=== PATIENT | female | born 1995 | race Caucasian/White ===

== ENCOUNTER 2023-09-11 15:28 | Outpatient (CLI) | payer OTHER ==
--- NOTE | 2023-09-11 16:08 | Sleep Patient Instructions ---
Sleep Center Visit Summary - Patient Visit Information Reason for Visit: Initial consultation - Patient Instructions Additional Instructions: You will continue with CPAP therapy with pressure set at 7 cmH2O. A supply prescription will be sent to your DME supplier for CPAP supplies. They should be reaching out to you to order supplies. You will be completing a sleep study, either an in-lab polysomnography (PSG) or home sleep study (HST). You will follow-up in the sleep care office after the sleep study is completed to hear the results and talk about therapy, if needed. You will be called by our office staff to schedule this appointment, but you may contact us with any questions. - Clinic Information Contact: [facility] [address] [place] [address] [email or web address] T: [phone]
--- NOTE | 2023-09-11 16:17 | SLEEP CARE CONSULTATION ---
Information from patient questionnaire entered by Cristina Garcia. I have reviewed and concur with the information entered by Cristina Garcia. This document represents the service I personally performed and the decisions made by me, Sophia Pruitt ARNP. History of Present Illness Service Date and Time: 09/11/2023 1528 Reason for Visit: New patient, Previously diagnosed sleep apnea Chief Complaint: reports: Other (UPDATE TEST) Usual bedtime: [id number] Time it takes to fall asleep: 20-30MINS Snores at night: Yes Observed to quit breathing while asleep: Yes Sleeps alone due to snoring: No Number of times waking at night: 2-3 Reasons for waking at night: reports: Gasping for air, Pain, Bathroom Toss, Turn, or Twitch while sleeping: Yes Recalls having dreams: Yes Usually gets out of bed at: 0530 Feels refreshed in the morning: No Morning headache: Yes Sleepy or fatigued during the day: Yes Ever fallen asleep while driving: Yes Takes day naps: Yes Dreams during day naps: No Prior sleep studies: Yes Year and Where: 2018 [facility] in [place] Additional HPI information: ADOLFO CAMPBELL (name has been changed to Patricia Cobb) was diagnosed to have mild, AHI 12.4, obstructive sleep apnea-hypopnea syndrome with AHI 73.4 during REM sleep as seen in PSG dated 07/30/2018 through [facility] in [place] and comes in today to establish care for CPAP therapy. She comes in today for a check up. She just recently started using her CPAP again after a couple years when she had stopped using it. She returns to make sure all is well with the CPAP therapy. - Parasomnia Symptoms Ever been unable to move upon waking from sleep: Yes Walks in sleep: No Talks in sleep: Yes Ever acted out dreams in sleep: Yes Ever felt weak in the knees when startled or emotional: Yes Bothered by creepy, crawly, restless sensations in legs: Yes Problems with memory or concentration: Yes CPAP Compliance Data - Data Reviewed with Patient Average duration of nightly device use: 6 hours 42 minutes Compliance rate %: 51 ( days used) Current pressure setting (cmH2O): 7 Average residual AHI: 0.8 Central apnea: 0 Obstructive apnea: 0.4 Hypopnea: 0.4 Average large leak: 0 L/min Compliance data discussion: She has an Airsense 10 that was set up in 2019. She is getting supplies from [employer]. She is using a nasal cushion mask, ResMed AirFit N20, large cushion. Subjective Missed days of use due to: reports: other (restarted using after couple years in June) Patient concerns: reports: mask discomfort, condensation in mask/hose. denies: aerophagia, air blowing in eyes, mask leak noise, nasal congestion, dry mouth, nose, throat, epistaxis Observed to snore while using device: No Current pressure setting perceived as: comfortable On therapy, patient: reports: sleeping better, awakening more refreshed, being more awake and alert during the day, more rested overall, other (does not get up as often during the night). 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 Patient is Single and lives in . Have you smoked in the past 12 months: No (smokes marijuana for pain control) Quit date: 2019 Alcohol use: Yes Alcohol amount and frequency: 1 DRINK VERY RARELY Caffeine use: Yes Caffeine amount and frequency: 1 DRINK MULTIPLE TIMES, daily; trying to reduce Family History Family history of sleep disordered breathing: Yes Family Hx Sleep Apnea: Mother: Sleep apnea - Untreated, Father: Snoring Allergies and Home Medications Known drug allergies: Yes (darvocet; adverse reaction to morphine) Drug allergies reviewed: Yes Home medication list reviewed: Yes (as listed) Allergy and home medication list: Home Medications Medication Instructions Recorded Confirmed Last Taken Type Biotin See Rx Instructions .ROUTE .COMPLEX 09/11/23 09/11/23 Unknown History Escitalopram [Lexapro] See Rx Instructions .ROUTE .COMPLEX 09/11/23 09/11/23 Unknown History Melatonin/Jasen/Valerian [Repozen See Rx Instructions .ROUTE .COMPLEX 09/11/23 09/11/23 Unknown History Sleep 5-30-50 mg Cap] Review of Systems Review of systems same as previous: Yes Weight gain over past 5 years: 100 Cardiovascular: reports: chest pain Respiratory: reports: shortness of breath, wheeze Gastrointestinal: reports: heartburn, nausea Neurological: reports: headaches Psychiatric: reports: anxiety, depression Ear/Nose/Throat: reports: tonsillectomy, other (TUBES) Musculoskeletal: reports: joint pain, neck pain, back pain, joint swelling, muscle pain or cramping, mobility problems Physical Exam Vital signs obtained and entered by: CRISTINA June MA Blood Pressure: 147/80 (LEFT ARM) Cuff size: long Heart Rate: 107 O2 Saturation: 97 Height: 5 ft 3 in Weight: 327 lb 12.8 oz Body Mass Index: 58.0 BMI Classification: Morbidly Obese Neck circumference: 18.5 Mouth and throat: narrow oropharynx Soft palate: long Hard palate: normal Uvula: normal Uvula visualization: 25% Mallampati Class III Tongue: enlarged in size with teeth jones on lateral edges Tonsils: absent bilaterally Heart: regular rate and rhythm Impression and Plan 1. Obstructive Sleep Apnea-Hypopnea Syndrome, mild, with fair treatment compliance and good apnea control. On CPAP therapy, the patient has better sleep quality and is more rested overall. Patient has not been consistently using her CPAP for a few years. She did restart using it in June and has gone up to 63% compliance in the last month. She has been buying her supplies online. Because her use has been inconsistent I will order another verifying polysomnography and follow-up with her in the office. I will also set her up with a CPAP supplier so that she can start getting supplies to use her CPAP. Her current pressure settings control her sleep apnea significantly and adequately. I will see her back in the office after the sleep study or if her insurance does not authorize a sleep study then we will see her back in 1 to 2 months to recheck compliance. Patient's apnea severity and rationale for treatment to reduce apnea, improve sleep quality and reduce cardiovascular and cerebrovascular events was reviewed. I also reviewed the benefit of consistent device use of CPAP for depression/anxiety, fibromyalgia and attention deficit. 2. Obesity, unspecified. Currently patients BMI is 58. Obesity increases the risk of apnea, CPAP pressure requirements and overall health risks especially cardiovascular and diabetes. Thus patient is advised to lose weight. * Continue CPAP pressure at 7 cmH2O * PSG/HST to re-verify diagnosis and severity * Transfer DME * Update supply prescription * Notify me if snoring with mask or feeling that the pressure is too much or too little * Attempt to lose weight * Call this office if any problems using CPAP * Return for follow up after sleep study or 1-2 months if unable to get sleep study, or sooner if concerns arise Counseling Topics: Weight loss health impact Prescriptions: Device supplies Follow up with Sleep Care in: 1-2 months (or after sleep study) Visit Type: In Office Time Spent with Patient (minutes): 36 Provider Statement: I spent 100% of the Face to Face Visit with the patient with greater than 50% spent counseling the patient and coordination of care.
[2023-09-11 16:27] VITALS: BP 147/80; O2SAT 97
== END 2023-09-11 15:29 | disposition home or self-care (01) ==
LOC: SC 15:28
PROVIDERS: ATTEND Nurse Practitioner Family
DX: G47.33 Obstructive sleep apnea (adult) (pediatric) (principal); F32.A Depression, unspecified; E66.01 Morbid (severe) obesity due to excess calories; Z68.43 Body mass index [BMI] 50.0-59.9, adult
CPT/HCPCS: 99203; 99212

== ENCOUNTER 2023-10-10 14:26 | Outpatient (CLI) | payer OTHER ==
[2023-10-10 17:54] LABS: HCT - HEMATOCRIT 40.6 % (37.0-47.0); HGB - HEMOGLOBIN 12.7 g/dL (12.0-16.0); MEAN CORPUSCULAR HEMOGLOBIN 25.8 pg (27.0-31.0); MEAN CORPUSCULAR HGB CONC 31.3 g/dL (32.0-36.0); MEAN CORPUSCULAR VOLUME 82.4 fL (81.0-99.0); MEAN PLATELET VOLUME 8.8 fL (7.9-10.8); RED BLOOD COUNT 4.93 10^6/uL (4.20-5.40); RED CELL DISTRIBUTION WIDTH 13.5 % (12.0-15.0); WHITE BLOOD COUNT 12.4 x10^3/uL (4.8-10.8)
[2023-10-10 19:35] LABS: THYROID STIMULATING HORMONE 0.83 uIU/mL (0.34-5.60)
[2023-10-11 05:12] LABS: HBsAG SCREEN Negative (Negative); HIV SCREEN 4TH GENERATION Non Reactive (Non Reactive)
[2023-10-11 06:10] LABS: HSV 2 IGG TYPE SPEC <0.91 index (0.00-0.90)
[2023-10-11 08:10] LABS: RPR Non Reactive (Non Reactive)
[2023-10-13 06:08] LABS: HCV AB Non Reactive (Non Reactive)
== END 2023-10-10 14:27 | disposition home or self-care (01) ==
LOC: LAB.N 14:26
PROVIDERS: ATTEND Obstetrics & Gynecology
DX: N93.9 Abnormal uterine and vaginal bleeding, unspecified (principal); Z11.3 Encounter for screening for infections with a predominantly sexual mode of transmission
CPT/HCPCS: 36415; 84443; 85027; 86592; 86695; 86696; 86803; 87340; 87389

== ENCOUNTER 2023-11-14 11:00 | Outpatient (CLI) | payer OTHER ==
--- NOTE | 2023-11-14 16:54 | XRAY Report ---
PROCEDURE: Chest 2V INDICATIONS: BRONCHITIS TECHNIQUE: 2 views of the chest were acquired. COMPARISON: None. FINDINGS: Surgical changes and devices: None. Lungs and pleura: No pleural effusions or pneumothorax. Lungs are clear. Mediastinum: Mediastinal contours appear normal. Heart size is normal. Bones and chest wall: No suspicious bony lesions. Overlying soft tissues appear unremarkable. IMPRESSION: No acute cardiopulmonary process. Reviewed by: Cristian Cannon MD on 11/14/2023 4:53 PM PDT Approved by: Cristian Cannon MD on 11/14/2023 4:53 PM PDT Station ID: [id number]
== END 2023-11-14 11:15 | disposition home or self-care (01) ==
LOC: DI.N 11:00
PROVIDERS: ATTEND Physician Assistant Medical
DX: J40 Bronchitis, not specified as acute or chronic (principal)

== ENCOUNTER 2023-11-28 20:41 | Outpatient (CLI) | payer OTHER | END 2023-11-28 20:42 | disposition home or self-care (01) | LOC: SC 20:41 | PROVIDERS: ATTEND Nurse Practitioner Family | DX: G47.33 Obstructive sleep apnea (adult) (pediatric) (principal); F32.A Depression, unspecified; G47.61 Periodic limb movement disorder | CPT/HCPCS: 95810 ==

== ENCOUNTER 2023-12-12 14:59 | Outpatient (CLI) | payer OTHER ==
--- NOTE | 2023-12-12 14:55 | SLEEP CARE CONSULTATION ---
Information from patient questionnaire entered by Cristina Garcia. I have reviewed and concur with the information entered by Cristina Garcia. This document represents the service I personally performed and the decisions made by , Sophia Pruitt ARNP. History of Present Illness Service Date and Time: 12/12/2023 1440 Initial [place] Sleepiness Scale score: 10 (09/11/23) Current [place] Sleepiness Scale score: 15 (12/12/23) Additional HPI information: RON COWAN returns via video appointment for follow up and results of the recently performed PSG done on 11/28/2023. The patient was informed of the following findings: No significant sleep disordered breathing with an average AHI of 4.5 and justine oxygen saturation of 83%. She had moderate PLMs contributing to sleep fragmentation. I explained the pathophysiology behind obstructive sleep apnea. Patient does not have sleep apnea and was advised how weight gain could increase the risk of developing sleep apnea in the future. I strongly encouraged the patient to lose weight. Patient has light to moderate snoring. Snoring can be reduced by weight loss. Weight loss is best achieved with diet consult. Patient instructed to contact PCP for referral. Snoring can also be treated with an oral appliance from a dentist. Advised to check insurance coverage. In addition, an ENT evaluation can be do to see if other treatment is indicated. Patient does not drink alcohol. Patient was cautioned about risks of drowsy driving until sleepiness symptoms resolve. Patient denies drowsy driving. Sleep Study - Results Type of Sleep Study: Polysomnography (COMPLETED 11/28/23) Prior sleep studies: Yes Year and Where: 2018 [facility] in [place] Polysomnography/Home Sleep Study results: IMPRESSION: The quality of the study is good. The patient had normal sleep efficiency. The sleep architecture was abnormal for sleep fragmentation and reduced amount of time spent in REM sleep. Respiratory monitoring showed no significant sleep disordered breathing (AHI = 4.5) or hypoxia (justine oxygen saturation of 83% but only 0.4% of the total sleep time was spent with oxygen saturation below 90%). The respiratory events occurred almost exclusively during REM sleep. The patient slept mostly supine (supine AHI = 4.7; non-supine = 2.07). Snore was light to moderate in intensity. There was moderate periodic leg movement of sleep, contributing to the sleep fragmentation Cardiac rhythm was normal sinus rhythm without significant arrhythmia. No abnormal behavior (parasomnia) observed during the night. CONCLUSIONS and RECOMMENDATIONS: 1. Periodic leg movement (ICD G47.61), moderate, treatment may be indicated. Clinical correlation advised. Allergies and Home Medications Known drug allergies: Yes ( as listed) Drug allergies reviewed: Yes Home medication list reviewed: Yes (no changes) Allergy and home medication list: Allergies morphine Adverse Reaction (Verified 12/12/23 14:31) Review of Systems Review of systems same as previous: Yes (NO CHANGE) Physical Exam Vital signs obtained and entered by: CRISTINA June MA Height: 5 ft 3 in (PER PT) Weight: 320 lb (PER PT) Body Mass Index: 56.7 BMI Classification: Morbidly Obese Impression and Plan 1. Snoring but no significant sleep disordered breathing. Patient advised that often weight loss will reduce snoring as well as apnea risk. An oral appliance can also be used for snoring. This would require a dental consultation. Patient cautioned not to use other online appliances as can cause bite issues. Patient is advised to check if insurance will cover. An ENT consult can also be helpful to determine if any other treatment is an option. 2. Periodic limb movement, moderate, that did contribute to fragmentation of the patients sleep. Periodic limb movement of sleep (PLMS) is characterized by episodes of repetitive limb movements that occur during sleep and usually involve the lower limbs. The etiology is unknown. Sleep hygiene methods can also improve sleep as well as lifestyle changes such as regular exercise. Patient was advised to follow up with PCP for further evaluation and treatment if needed. She voiced understanding. 3. Obesity, Morbid. Currently patients BMI is 56.7. Obesity increases the risk of apnea, CPAP pressure requirements and overall health risks especially cardiovascular and diabetes. Thus patient is advised to lose weight. * Follow up with PCP for PLMs * Attempt to lose weight * The patient is cautioned about driving until sleepiness is completely resolved. * Return as needed for follow up. Counseling Topics: Weight loss health impact Follow up with Sleep Care in: as needed Follow up with: PCP Follow up recommended for: PLMS Visit Type: Telehealth Video Video Type: Doximity Patient Location: Home Location of Provider: Office Patient agrees and consents to this telehealth visit type: Yes Patient agrees to have their insurance billed: Yes Time Spent with Patient (minutes): 13 Provider Statement: I spent 100% of the Telehealth Video Call with the patient with greater than 50% spent counseling the patient and coordination of care.
== END 2023-12-12 15:00 | disposition home or self-care (01) ==
LOC: SC 14:59
PROVIDERS: ATTEND Nurse Practitioner Family
DX: R06.83 Snoring (principal); G47.61 Periodic limb movement disorder; E66.01 Morbid (severe) obesity due to excess calories; Z68.43 Body mass index [BMI] 50.0-59.9, adult